=== PATIENT | male | born 2000 | race Caucasian/White ===

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

== ENCOUNTER 2021-02-04 18:26 | Emergency (ER) | payer BC ==
[~2021-02-04] VITALS: Ht 193 cm; Wt 68.0 kg
--- NOTE | 2021-02-04 18:56 | ED Abdominal Pain ---
General Chief Complaint: Abdominal/GI Problems Stated Complaint: NAUSEA/ABD PAIN Nursing Triage Note: PT ARRIVES TO ER WITH C/O N/V SINCE THURSDAY. PT SAID THE LAST TIME HE VOMITTED WAS THIS MORNING AFTER TRYING TO EAT BREAKFAST Source of Information: Patient Exam Limitations: No Limitations History of Present Illness Date Seen by Provider: Feb 04, 2021 Time Seen by Provider: 18:32 Initial Comments 20yoM with no signifcant PMH coming in due to 0200 on Thursday woke up with n/v and chills. Thursday little better. Vomited again Thursday and felt a little worse. Went to work today at 0600 and lifted something about 10 pounds, and around the same time felt pain in his RLQ abd. 5/10 achy pain. Has not taken any meds for it. Resting and laying down feels better. Pain has been constant since then. Has not wanted to eat today but did keep down a sandwich for lunch. Also had a normal bowel movement this morning which did not help. Of note, he has both had COVID less than a year ago and been vaccinated. Allergies and Home Medications Allergies Coded Allergies: No Known Allergies (Unverified Allergy, Mild, 07/18/08) Patient Home Medication List Home Medication List Reviewed: Yes No Active Prescriptions or Reported Meds Review of Systems Review of Systems Constitutional: chills EENTM: No Blurred Vision Respiratory: Denies Cough, Denies Shortness of Air Cardiovascular: Denies Chest Pain Gastrointestinal: Abdominal Pain; Denies Diarrhea; Nausea, Vomiting Genitourinary: Denies Burning Musculoskeletal: no symptoms reported Skin: no symptoms reported Psychiatric/Neurological: No Symptoms Reported Endocrine: No Symptoms Reported Hematologic/Lymphatic: No Symptoms Reported All Other Systems Reviewed Negative Unless Noted: Yes Past Vhbrkzc-Vfjwzt-Jeejwq Hx Patient Social History Tobacco Use?: No Use of E-Cig and/or Vaping dev: No Substance use?: No Alcohol Use?: No Pt feels they are or have been: No Immunizations Up To Date Tetanus Booster (TDap): Less than 5yrs PED Vaccines UTD: Yes Influenza Vaccine Up-to-Date: No; Not Current First/Initial COVID19 Vaccinat: JUNE 2020 Second COVID19 Vaccination Seth: JULY 2020 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 oz. 61.074081au; 18.00 BMI Method:Stated General Appearance: WD/WN, no apparent distress HEENT: PERRL/EOMI, normal ENT inspection, pharynx normal Neck: non-tender, full range of motion, supple, normal inspection Respiratory: chest non-tender, lungs clear, normal breath sounds, no respiratory distress, no accessory muscle use Cardiovascular: regular rate, rhythm, no edema, no murmur Gastrointestinal: normal bowel sounds, soft; No distended, No guarding, No rebound; tenderness Extremities: normal range of motion, non-tender, normal inspection, no pedal edema, no calf tenderness, normal capillary refill Back: normal inspection, no CVA tenderness, no vertebral tenderness Neurologic/Psychiatric: no motor/sensory deficits, alert, normal mood/affect Skin: normal color, warm/dry Lymphatic: no adenopathy Progress/Results/Core Measures Results/Orders Lab Results Laboratory Tests Test 02/04/21 18:53 Range/Units White Blood Count 6.6 4.3-11.0 10^3/uL Red Blood Count 5.26 4.30-5.52 10^6/uL Hemoglobin 16.7 13.3-17.7 g/dL Hematocrit 46 40-54 % Mean Corpuscular Volume 88 80-99 fL Mean Corpuscular Hemoglobin 32 25-34 pg Mean Corpuscular Hemoglobin Concent 36 32-36 g/dL Red Cell Distribution Width 11.6 10.0-14.5 % Platelet Count 352 130-400 10^3/uL Mean Platelet Volume 10.1 9.0-12.2 fL Immature Granulocyte % (Auto) 0 % Neutrophils (%) (Auto) 58 42-75 % Lymphocytes (%) (Auto) 30 12-44 % Monocytes (%) (Auto) 10 0-12 % Eosinophils (%) (Auto) 0 0-10 % Basophils (%) (Auto) 1 0-10 % Neutrophils # (Auto) 3.8 1.8-7.8 10^3/uL Lymphocytes # (Auto) 2.0 1.0-4.0 10^3/uL Monocytes # (Auto) 0.7 0.0-1.0 10^3/uL Eosinophils # (Auto) 0.0 0.0-0.3 10^3/uL Basophils # (Auto) 0.1 0.0-0.1 10^3/uL Immature Granulocyte # (Auto) 0.0 0.0-0.1 10^3/uL Sodium Level 140 135-145 MMOL/L Potassium Level 3.9 3.6-5.0 MMOL/L Chloride Level 104 98-107 MMOL/L Carbon Dioxide Level 20 L 21-32 MMOL/L Anion Gap 16 H 5-14 MMOL/L Blood Urea Nitrogen 17 7-18 MG/DL Creatinine 1.07 0.60-1.30 MG/DL Estimat Glomerular Filtration Rate 88 BUN/Creatinine Ratio 16 Glucose Level 90 70-105 MG/DL Calcium Level 10.0 8.5-10.1 MG/DL Corrected Calcium 8.5-10.1 MG/DL Total Bilirubin 1.3 H 0.1-1.0 MG/DL Aspartate Amino Transf (AST/SGOT) 16 5-34 U/L Alanine Aminotransferase (ALT/SGPT) 12 0-55 U/L Alkaline Phosphatase 48 40-136 U/L Total Protein 7.4 6.4-8.2 GM/DL Albumin 4.7 H 3.2-4.5 GM/DL Lipase 14 8-78 U/L My Orders Orders - PERFECTO HENAO MD Ondansetron Injection (Zofran Injectio (02/04/21 19:15) Lactated Ringers (Lr 1000 Ml Iv Solution (02/04/21 19:01) Ed Iv/Invasive Line Start (02/04/21 19:01) Morphine Injection (Morphine Injection (02/04/21 19:15) Cbc With Automated Diff (02/04/21 19:) Comprehensive Metabolic Panel (02/04/21 19:01) Ct Abd/Pelv W (Appendicitis) (02/04/21 19:01) Lipase (02/04/21 19:01) Iohexol Injection (Omnipaque 350 Mg/Ml 1 (02/04/21 19:15) Received Contrast (Hold Metformin- Contr (02/04/21 19:15) Ns (Ivpb) (Sodium Chloride 0.9% Ivpb Bag (02/04/21 19:15) Medications Given in ED Current Medications Medications Dose Ordered Sig/Allison Route Start Time Stop Time Status Last Admin Dose Admin Iohexol 100 ml ONCE ONCE IV 02/04/21 19:15 02/04/21 19:16 DC 02/04/21 19:22 85 ML Morphine Sulfate 4 mg ONCE ONCE IVP 02/04/21 19:15 02/04/21 19:16 DC 02/04/21 19:42 4 MG Ondansetron HCl 4 mg ONCE ONCE IVP 02/04/21 19:15 02/04/21 19:16 DC 02/04/21 19:42 4 MG Sodium Chloride 100 ml ONCE ONCE IV 02/04/21 19:15 02/04/21 19:16 DC 02/04/21 19:22 80 ML Vital Signs/I&O 02/04/21 18:37 Temp 36.6 Pulse 91 Resp 18 B/P (MAP) 137/78 (97) Pulse Ox 99 O2 Delivery Room Air 2 Blood Pressure Mean: 97 Progress Progress Note : Progress Note 20-year-old male with above history coming in due to abdominal pain with nausea vomiting. ABCs were intact and vitals were stable on presentation. Physical exam with right lower quadrant tenderness, some voluntary guarding, but otherwise soft and no rebound. An IV was placed he was given morphine for pain and Zofran for nausea. He was also given IV fluids. Basic labs including LFTs ordered as well as a CT to assess for appendicitis versus some other etiology. CT negative for any acute findings. White blood count normal, electrolytes normal, kidney function normal. He is tolerating p.o., appears well, I believe stable for discharge. This is likely some viral cause of vomiting that he is having some abdominal wall tenderness from so much straining. I did talk to them that there can be early appendicitis that were missing and what symptoms to look out for, and what to come back to the ER for. He was then discharged home in stable condition with strict return precautions. Diagnostic Imaging Diagonstic Imaging: CT Plain Films/CT/US/NM/MRI: abdomen, pelvis Comments [facility]. [place], [place] NAME: [facility]ALT [facility] REC#: [id number] PT STATUS: REG ER : 2000 PHYSICIAN: PERFECTO HENAO MD ADMIT DATE: 02/04/21/ER Signed Date of Exam:02/04/21 CT ABD/PELV W (APPENDICITIS) PROCEDURE: CT abdomen and pelvis with contrast, rule out appendicitis. TECHNIQUE: Multiple contiguous axial images were obtained through the abdomen and pelvis after the administration of intravenous contrast. All CT scans use one or more of the following dose optimizing techniques: automated exposure control, MA and/or KvP adjustment based on patient size and exam type or iterative reconstruction. INDICATION: Right lower quadrant abdominal pain. Comparison is made to the prior study from 11/06/2015. FINDINGS: The lung bases demonstrate no evidence of pneumonia or edema. There is no pleural or pericardial effusion. The liver is unremarkable. The portal veins are patent. The gallbladder is nondistended without radiodense gallstones or findings of biliary dilatation. The pancreas is unremarkable without ductal dilatation or adjacent fluid. Spleen is normal in size. There is no adrenal mass. There is a tiny left renal cyst. The kidneys are nonobstructed. There are no findings of bowel obstruction. No abnormal small or large bowel dilation evident. The appendix is not well-defined given multiple adjacent loops of bowel within the right lower quadrant. What is believed to be a portion of the appendix appears normal in caliber. There are no secondary signs of inflammation within the right lower quadrant or findings of fat stranding or free fluid within the pelvis. The urinary bladder is unremarkable. No pathologic adenopathy. Aorta is normal in caliber. There is no acute or suspicious osseous abnormality. IMPRESSION: 1. The appendix is not well delineated but there are no secondary findings of focal inflammation within the right lower quadrant. There is no fat stranding or evidence of free fluid within the pelvis. There are no findings of bowel obstruction. There is no free air or abscess. Dictated by: Dictated on workstation # [id number] Dict: 02/04/211925 Trans: 02/04/211941 [facility] [id number] Interpreted by: ANDREA FIGUEREDO MD Electronically signed by: ANDREA FIGUEREDO MD 02/04/211941 Departure Impression Primary Impression: Abdominal pain Qualified Codes: R10.31 - Right lower quadrant pain Additional Impression: Nausea and vomiting Qualified Codes: R11.2 - Nausea with vomiting, unspecified Disposition: 01 HOME, SELF-CARE Condition: Stable Departure-Patient Inst. Decision time for Depature: 20:10 Referrals: ALE BURROWS DO (PCP/Family) Primary Care Physician Patient Instructions: Nausea and Vomiting, Adult, Severe Abdominal Pain, Adult (DC) Add. Discharge Instructions: You are seen in the emergency department for abdominal pain as well as vomiting. Your labs and imaging were negative for appendicitis as of right now. It likely is some type of virus that is causing you to vomit, and you can have abdominal pain after a couple days of vomiting as well. Take ibuprofen and Tylenol for pain. Take Zofran for nausea. Try to take in clear fluids for the next couple days. If you have worsening of pain, fever, worsening of vomiting that will not stop, or any other concerns then come back to the ER. All discharge instructions reviewed with patient and/or family. Voiced understanding. Scripts Ondansetron (Ondansetron Odt) 4 Mg Tab.rapdis 4 MG PO Q6H for Vomiting for 5 Days, #20 TAB Prov: PERFECTO HENAO MD 02/04/21 Work/School Note: Work Release Form Date Seen in the Emergency Department: Feb 04, 2021 Return to Work: Feb 06, 2021 Restrictions: No Restrictions PERFECTO HENAO MD Feb 04, 2021 18:56
[2021-02-04] MEDS ORDERED: LACTATED RINGERS 1,000 ML IV STA (19:01)
[2021-02-04 19:15] LABS: BASOPHILS # (AUTO) 0.1 10^3/uL (0.0-0.1); BASOPHILS % (AUTO) 1 % (0-10); EOSINOPHILS % (AUTO) 0 % (0-10); HEMATOCRIT 46 % (40-54); HEMOGLOBIN 16.7 g/dL (13.3-17.7); LYMPHOCYTES % (AUTO) 30 % (12-44); MEAN CORPUSCULAR HEMOGLOBIN 32 pg (25-34); MEAN CORPUSCULAR HGB CONC 36 g/dL (32-36); MEAN CORPUSCULAR VOLUME 88 fL (80-99); MEAN PLATELET VOLUME 10.1 fL (9.0-12.2); MONOCYTES # (AUTO) 0.7 10^3/uL (0.0-1.0); MONOCYTES % (AUTO) 10 % (0-12); NEUTROPHILS # (AUTO) 3.8 10^3/uL (1.8-7.8); NEUTROPHILS % (AUTO) 58 % (42-75); PLATELET COUNT 352 10^3/uL (130-400); WHITE BLOOD COUNT 6.6 10^3/uL (4.3-11.0)
[2021-02-04] MEDS ORDERED: HOLD METFORMIN - RECEIVED CONTRAST 20 ML VIAL IV SCH (19:15)
[2021-02-04] MEDS ORDERED: IOHEXOL 350 MG/ML 100 ML (OMNIPAQUE 350) VIAL IV ONE (19:15)
[2021-02-04] MEDS ORDERED: NS 100 ML (IVPB) BAG IV ONE (19:15)
[2021-02-04] MEDS ORDERED: morphine INJ 10 MG/ML 1ML (SYR OR VIAL) IVP ONE (19:15)
[2021-02-04] MEDS ORDERED: ONDANSETRON 4 MG/2 ML (SDV) Z0FRAN IVP ONE (19:15)
[2021-02-04 19:23] LABS: ALANINE AMINOTRANSFERASE 12 U/L (0-55); ALBUMIN 4.7 GM/DL (3.2-4.5); ALKALINE PHOSPHATASE 48 U/L (40-136); BILIRUBIN,TOTAL 1.3 MG/DL (0.1-1.0); BUN/CREATININE RATIO 16; CARBON DIOXIDE 20 MMOL/L (21-32); CHLORIDE 104 MMOL/L (98-107); CREATININE SERUM 1.07 MG/DL (0.60-1.30); GFR ESTIMATED 88; GLUCOSE 90 MG/DL (70-105); POTASSIUM 3.9 MMOL/L (3.6-5.0); SODIUM 140 MMOL/L (135-145); TOTAL PROTEIN 7.4 GM/DL (6.4-8.2)
--- NOTE | 2021-02-04 19:43 | Diagnostic Imaging Report ---
PROCEDURE: CT abdomen and pelvis with contrast, rule out appendicitis. TECHNIQUE: Multiple contiguous axial images were obtained through the abdomen and pelvis after the administration of intravenous contrast. All CT scans use one or more of the following dose optimizing techniques: automated exposure control, MA and/or KvP adjustment based on patient size and exam type or iterative reconstruction. INDICATION: Right lower quadrant abdominal pain. Comparison is made to the prior study from 11/06/2015. FINDINGS: The lung bases demonstrate no evidence of pneumonia or edema. There is no pleural or pericardial effusion. The liver is unremarkable. The portal veins are patent. The gallbladder is nondistended without radiodense gallstones or findings of biliary dilatation. The pancreas is unremarkable without ductal dilatation or adjacent fluid. Spleen is normal in size. There is no adrenal mass. There is a tiny left renal cyst. The kidneys are nonobstructed. There are no findings of bowel obstruction. No abnormal small or large bowel dilation evident. The appendix is not well-defined given multiple adjacent loops of bowel within the right lower quadrant. What is believed to be a portion of the appendix appears normal in caliber. There are no secondary signs of inflammation within the right lower quadrant or findings of fat stranding or free fluid within the pelvis. The urinary bladder is unremarkable. No pathologic adenopathy. Aorta is normal in caliber. There is no acute or suspicious osseous abnormality. IMPRESSION: 1. The appendix is not well delineated but there are no secondary findings of focal inflammation within the right lower quadrant. There is no fat stranding or evidence of free fluid within the pelvis. There are no findings of bowel obstruction. There is no free air or abscess. Dictated by: Dictated on workstation # [id number]
[2021-02-04] MEDS ORDERED: ONDA4TAB11 PO (20:00)
[2021-02-04] MEDS ORDERED: RX-ONDANSETRON 4 MG ODT (ZOFRAN) PPK #4 PO STA (20:01)
[2021-02-04 20:29] VITALS: BP 127/78
== END 2021-02-04 20:28 | disposition home or self-care (01) ==
LOC: EDUNIT# 18:26 → ER 18:28
DX: R10.31 Right lower quadrant pain (principal); R11.2 Nausea with vomiting, unspecified
CPT/HCPCS: 36415; 74177; 80053; 83690; 85025

== ENCOUNTER 2021-02-08 14:14 | Observation (INO) | payer BC ==
[~2021-02-08] VITALS: Ht 193 cm; Wt 62.3 kg
[~2021-02-08 14:14] MED LIST changes: +ONDA4TAB11 PO
[2021-02-08] MEDS ORDERED: DOCUSATE SODIUM 100 MG (COLACE) CAP PO PRN (14:45)
[2021-02-08] MEDS ORDERED: ONDANSETRON 4 MG (ZOFRAN) ORAL DISSOLVE TAB PO PRN (14:45)
[2021-02-08] MEDS ORDERED: ACETAMINOPHEN 500 MG TAB (TYLENOL) PO PRN (14:45)
[2021-02-08] MEDS ORDERED: CALCIUM CARBONATE 500 MG (TUMS) TAB.CHEW PO PRN (14:45)
[2021-02-08] MEDS ORDERED: ALPRAZolam 0.25 MG (XANAX) TAB PO PRN (14:45)
[2021-02-08] MEDS ORDERED: HYDROcodone/APAP 5 MG/325 MG (LORTAB) TAB PO PRN (14:45)
[2021-02-08] MEDS ORDERED: MELATONIN 3 MG TABLET PO PRN (14:45)
[2021-02-08] MEDS ORDERED: ONDANSETRON 4 MG/2 ML (SDV) Z0FRAN IVP PRN (14:45)
[2021-02-08] MEDS ORDERED: diphenhydrAMINE 25 MG TAB (BENADRYL) PO PRN (14:45)
[2021-02-08] MEDS ORDERED: morphine INJ 10 MG/ML 1ML (SYR OR VIAL) IVP PRN (14:45)
[2021-02-08] MEDS ORDERED: ACETAMINOPHEN 325 MG TABLET PO PRN (15:00)
--- NOTE | 2021-02-08 15:11 | Diagnostic Imaging Report ---
INDICATION: Left-sided abdominal pain. TECHNIQUE: Two view chest 3:03 PM CORRELATION STUDY: 05/05/2015 FINDINGS: The heart size, mediastinal configuration and pulmonary vasculature are within normal limits. The lungs are clear with no consolidating infiltrate. There is no significant pleural effusion or pneumothorax. Visualized osseous structures are unremarkable. IMPRESSION: 1. Negative for acute abnormality of the chest. Dictated by: Dictated on workstation # [id number]
[2021-02-08 15:23] LABS: BASOPHILS % (AUTO) 1 % (0-10); EOSINOPHILS # (AUTO) 0.1 10^3/uL (0.0-0.3); EOSINOPHILS % (AUTO) 1 % (0-10); HEMATOCRIT 43 % (40-54); HEMOGLOBIN 15.4 g/dL (13.3-17.7); LYMPHOCYTES % (AUTO) 35 % (12-44); MEAN CORPUSCULAR HEMOGLOBIN 32 pg (25-34); MEAN CORPUSCULAR HGB CONC 36 g/dL (32-36); MEAN CORPUSCULAR VOLUME 89 fL (80-99); MEAN PLATELET VOLUME 9.6 fL (9.0-12.2); MONOCYTES # (AUTO) 0.5 X 10^3 (0.0-1.0); MONOCYTES % (AUTO) 8 % (0-12); NEUTROPHILS # (AUTO) 3.1 X 10^3 (1.8-7.8); NEUTROPHILS % (AUTO) 55 % (42-75); PLATELET COUNT 298 10^3/uL (130-400); WHITE BLOOD COUNT 5.7 10^3/uL (4.3-11.0)
[2021-02-08] MEDS: NS IV 1000 ML 1,000 ML IV SCH ×2 (15:44→21:28)
[2021-02-08 15:46] LABS: ALBUMIN 4.4 GM/DL (3.2-4.5); ERYTHROCYTE SEDIMENTATION RATE 1 MM/HR (0-15); POTASSIUM 3.9 MMOL/L (3.6-5.0)
[2021-02-08 15:48] LABS: CALCIUM 8.8 MG/DL (8.5-10.1)
[2021-02-08 15:49] LABS: TOTAL PROTEIN 6.5 GM/DL (6.4-8.2)
[2021-02-08 15:51] LABS: BILIRUBIN,TOTAL 1.1 MG/DL (0.1-1.0)
[2021-02-08 15:53] LABS: CREATININE SERUM 1.06 MG/DL (0.60-1.30)
[2021-02-08] MEDS ORDERED: DIPH50LI PO (15:54)
[2021-02-08] MEDS ORDERED: ONDA4TAB11 PO (15:54)
[2021-02-08] MEDS ORDERED: TRAM50TA3 PO (15:54)
[2021-02-08 15:57] LABS: BILIRUBIN,URINE NEGATIVE (NEGATIVE); CLARITY,URINE CLEAR; COLOR,URINE YELLOW; GLUCOSE, URINE (UA) NEGATIVE (NEGATIVE); KETONES,URINE NEGATIVE (NEGATIVE); LEUKOCYTE ESTERASE ,URINE NEGATIVE (NEGATIVE); NITRITE,URINE NEGATIVE (NEGATIVE); PROTEIN,URINE NEGATIVE (NEGATIVE)
--- NOTE | 2021-02-08 16:07 | Diagnostic Imaging Report ---
INDICATION: Left-sided abdominal pain. TECHNIQUE: Two supine and single upright view of the abdomen 03:05 p.m. CORRELATION STUDY: None. FINDINGS: Lung bases appearing clear. No free air on upright imaging. Prominent gas within the colon and small bowel. Slight disproportionate gas in the transverse colon. No differentiating air-fluid levels or findings to suggest high-degree bowel obstruction. Mild wall thickening of small bowel and left midabdomen not excluded, could be reflective of underlying enteritis. Mild spina bifida occulta defect at the S1 level. IMPRESSION: 1. Nonobstructive-appearing bowel gas pattern. Gas-filled loops of bowel may be reflective of mild ileus. Additionally, there is question area of small bowel wall thickening; could be reflective of component of underlying enteritis. Dictated by: Dictated on workstation # [id number]
[2021-02-08 16:26] VITALS: BP 107/65
[2021-02-08 16:36] LABS: AMORPHOUS SEDIMENT,UR FEW AMOR URATES /LPF; BACTERIA,URINE TRACE /HPF
--- NOTE | 2021-02-08 17:38 | Consultation - Surgery ---
History of Present Illness History of Present Illness Patient Consulted On(flakita/time) 02/08/21 17:24 Time Seen by Provider: 16:41 History of Present Illness Surgery asked to consult regarding abdominal pain. HPI: Pt is a 20 yo male with abdominal pain that began last Thursday; however, it started with nausea and vomiting that woke him from sleep at 1am. He did go out to eat night, but does not remember exactly what he ate. He doesn't think any of his friends that ate out with him got sick. Pain did not get better and he went to the ER on Thursday; CT and work-up all negative. He then got sent to [place] later in the week for IV fluids and basically is still not better. Relates that he had to lean on shopping cart in the store because of the pain and bumps on the road caused abdominal pain. He had one episode of watery diarrhea on Thursday or Thursday. He rates the pain as 4 out of 10, mostly in LUQ but also in RLQ. He denies any heartburn or "acid" feeling in throat. He has never had pain like this before and denied fever at home. Allergies and Home Medications Allergies Coded Allergies: KILLIANANo Known Allergies (Verified Allergy, Mild, 02/08/21) Patient Home Medication List Home Medication List Reviewed: Yes Diphenhydramine HCl (Zzzquil) 50 Mg/30 Ml Liquid, 30 ML PO HS PRN for SLEEP, (Reported) Entered as Reported by: PAOLA SANCHEZ on 02/08/21 0800 Last Action: Reviewed Ondansetron (Ondansetron Odt) 4 Mg Tab.rapdis, 4 MG PO Q6H PRN for NAUSEA/VOMITING-1ST LINE, (Reported) Entered as Reported by: PAOLA SANCHEZ on 02/08/21 250 Last Action: Reviewed Tramadol HCl (Tramadol HCl) 50 Mg Tablet, 50 MG PO BID PRN for PAIN-MODERATE (5- 7), (Reported) Entered as Reported by: PAOLA SANCHEZ on 02/08/21 023 Last Action: Reviewed Discontinued Medications Ondansetron (Ondansetron Odt) 4 Mg Tab.rapdis, 4 MG PO Q6H Discontinued Reason: No Longer Taking Prescribed by: PERFECTO HENAO on 02/04/211999 Last Action: Discontinued Past Xhmlvrc-Lixvlp-Hicjzo Hx Patient Social History Smoking Status: Never a Smoker Recent Hopitalizations: No Alcohol Use?: No Have you traveled recently?: No Immunizations Up To Date Tetanus Booster (TDap): Less than 5yrs PED Vaccines UTD: Yes Seasonal Allergies Seasonal Allergies: No Surgeries History of Surgeries: Yes (wisdom teeth removal) Respiratory History of Respiratory Disorde: No Cardiovascular History of Cardiac Disorders: No Neurological History of Neurological Disord: No Reproductive System Hx Reproductive Disorders: No Genitourinary History of Genitourinary Disor: No Gastrointestinal History of Gastrointestinal Di: No Musculoskeletal History of Musculoskeletal Dis: No Endocrine History of Endocrine Disorders: No HEENT History of HEENT Disorders: No Loss of Vision: Denies Hearing Impairment: Denies Cancer History of Cancer: No Psychosocial History of Psychiatric Problem: No Integumentary History of Skin or Integumenta: No Family Medical History Significant Family History: Hypertension (mother and father) Review of Systems-General Constitutional: No dizziness; weakness, weight loss (due to not eating) EENTM: No blurred vision, No double vision, No mouth swelling, No epistaxis Respiratory: No cough, No dyspnea on exertion Cardiovascular: No chest pain, No edema, No palpitations Gastrointestinal: abdominal pain, diarrhea; No hematemesis, No jaundice, No melena; nausea, vomiting Genitourinary: No dysuria, No frequency, No hematuria Musculoskeletal: No joint pain, No joint swelling, No muscle pain, No muscle stiffness Skin: No change in color, No change in hair/nails Psychiatric/Neurological: Denies Anxiety, Denies Depressed, Denies Seizure, Denies Tremors Physical Exam-General Problems Physical Exam Vital Signs Vital Signs - First Documented 02/08/21 02/08/21 15:51 16:26 Temp 36.3 Pulse 54 Resp 17 B/P (MAP) 107/65 (79) Pulse Ox 99 O2 Delivery Room Air Capillary Refill : General Appearance: WD/WN, no apparent distress, thin Eyes: Bilateral Eye PERRL, Bilateral Eye EOMI HEENT: pharynx normal; No scleral icterus (R), No scleral icterus (L) Neck: non-tender, supple Respiratory: lungs clear, normal breath sounds, no respiratory distress, no accessory muscle use Cardiovascular: regular rate, rhythm, no murmur Gastrointestinal: soft, no organomegaly; No distended; guarding (voluntary); No rebound; tenderness (LUQ and RLQ) Rectal: deferred Back: no CVA tenderness, no vertebral tenderness Extremities: no pedal edema, no calf tenderness Neurologic/Psychiatric: regulatory affairs intern II-XII nml as tested, no motor/sensory deficits, alert, oriented x 3 Data Review Labs Laboratory Tests 02/08/21 15:14: White Blood Count 5.7, Red Blood Count 4.83, Hemoglobin 15.4, Hematocrit 43, Mean Corpuscular Volume 89, Mean Corpuscular Hemoglobin 32, Mean Corpuscular Hemoglobin Concent 36, Red Cell Distribution Width 11.9, Platelet Count 298, Mean Platelet Volume 9.6, Immature Granulocyte % (Auto) 0, Neutrophils (%) (Auto) 55, Lymphocytes (%) (Auto) 35, Monocytes (%) (Auto) 8, Eosinophils (%) (Auto) 1, Basophils (%) (Auto) 1, Neutrophils # (Auto) 3.1, Lymphocytes # (Auto) 2.0, Monocytes # (Auto) 0.5, Eosinophils # (Auto) 0.1, Basophils # (Auto) 0.0, Immature Granulocyte # (Auto) 0.0, Erythrocyte Sedimentation Rate 1, Sodium Level 138, Potassium Level 3.9, Chloride Level 104, Carbon Dioxide Level 23, Anion Gap 11, Blood Urea Nitrogen 14, Creatinine 1.06, Estimat Glomerular Filtration Rate 89, BUN/Creatinine Ratio 13, Glucose Level 83, Lactic Acid Level 1.07, Calcium Level 8.8, Corrected Calcium 8.5, Total Bilirubin 1.1H, Aspartate Amino Transf (AST/SGOT) 11, Alanine Aminotransferase (ALT/SGPT) 9, Alkaline Phosphatase 42, C-Reactive Protein High Sensitivity 0.01, Total Protein 6.5, Albumin 4.4, Amylase Level 60, Lipase 15, Procalcitonin 0.01 02/08/21 15:45: Urine Color YELLOW, Urine Clarity CLEAR, Urine pH 6.0, Urine Specific [place] 1.025H, Urine Protein NEGATIVE, Urine Glucose (UA) NEGATIVE, Urine Ketones NEGATIVE, Urine Nitrite NEGATIVE, Urine Bilirubin NEGATIVE, Urine Urobilinogen 0.2, Urine Leukocyte Esterase NEGATIVE, Urine RBC (Auto) NEGATIVE, Urine RBC NONE, Urine WBC NONE, Urine Crystals PRESENTH, Urine Amorphous Sediment FEW VERA URATESH, Urine Bacteria TRACE, Urine Casts NONE, Urine Mucus LARGEH, Urine Culture Indicated NO Radiology Date of Exam:02/04/21 CT ABD/PELV W (APPENDICITIS) PROCEDURE: CT abdomen and pelvis with contrast, rule out appendicitis. TECHNIQUE: Multiple contiguous axial images were obtained through the abdomen and pelvis after the administration of intravenous contrast. All CT scans use one or more of the following dose optimizing techniques: automated exposure control, MA and/or KvP adjustment based on patient size and exam type or iterative reconstruction. INDICATION: Right lower quadrant abdominal pain. Comparison is made to the prior study from 11/06/2015. FINDINGS: The lung bases demonstrate no evidence of pneumonia or edema. There is no pleural or pericardial effusion. The liver is unremarkable. The portal veins are patent. The gallbladder is nondistended without radiodense gallstones or findings of biliary dilatation. The pancreas is unremarkable without ductal dilatation or adjacent fluid. Spleen is normal in size. There is no adrenal mass. There is a tiny left renal cyst. The kidneys are nonobstructed. There are no findings of bowel obstruction. No abnormal small or large bowel dilation evident. The appendix is not well-defined given multiple adjacent loops of bowel within the right lower quadrant. What is believed to be a portion of the appendix appears normal in caliber. There are no secondary signs of inflammation within the right lower quadrant or findings of fat stranding or free fluid within the pelvis. The urinary bladder is unremarkable. No pathologic adenopathy. Aorta is normal in caliber. There is no acute or suspicious osseous abnormality. IMPRESSION: 1. The appendix is not well delineated but there are no secondary findings of focal inflammation within the right lower quadrant. There is no fat stranding or evidence of free fluid within the pelvis. There are no findings of bowel obstruction. There is no free air or abscess. Dictated by: Dictated on workstation # [id number] Dict: 02/04/211925 Trans: 02/04/211941 [facility] [id number] Interpreted by: ANDREA FIGUEREDO MD Electronically signed by: ANDREA FIGUEREDO MD 02/04/211941 Date of Exam:02/08/21 ABDOMEN, FLAT & UPRIGHT/DECUB INDICATION: Left-sided abdominal pain. TECHNIQUE: Two supine and single upright view of the abdomen 03:05 p.m. CORRELATION STUDY: None. FINDINGS: Lung bases appearing clear. No free air on upright imaging. Prominent gas within the colon and small bowel. Slight disproportionate gas in the transverse colon. No differentiating air-fluid levels or findings to suggest high-degree bowel obstruction. Mild wall thickening of small bowel and left midabdomen not excluded, could be reflective of underlying enteritis. Mild spina bifida occulta defect at the S1 level. IMPRESSION: 1. Nonobstructive-appearing bowel gas pattern. Gas-filled loops of bowel may be reflective of mild ileus. Additionally, there is question area of small bowel wall thickening; could be reflective of component of underlying enteritis. Dictated by: Dictated on workstation # [id number] Dict: 02/08/21 1511 Trans: 02/08/21 1638 [id number] Interpreted by: KARLA ANGELES DO Electronically signed by: KARLA ANGELES DO 02/08/21 1638 Assessment/Plan Assessment/Plan Assessment/Plan Abdominal pain LUQ and RLQ Nausea and vomiting Pt has normal WBC (5.7) and no real findings on CT or Abd X-ray, physical exam is not impressive. He most likely has a viral enteritis; if he had appendicitis or any other inflammatory process then his WBC would not be normal after a week. His mother asked about ulcer; while not likely because his symptoms and complaints don't seem like an ulcer, it would be worth while to consider EGD to at least rule a few things out. For now would plan IV fluids, pain meds and anti-emetics as needed; don't believe he needs ABX at this time. Will reassess him in am and discuss possible EGD and therefore will keep him NPO for now. Nothing else indicating need for surgery at this point. NICHOLE SOTO DO Feb 08, 2021 17:38
[2021-02-08 17:52] LABS: AMPHETAMINE SCREEN, URINE NEGATIVE (NEGATIVE); BARBITURATE SCREEN URINE NEGATIVE (NEGATIVE); BENZODIAZEPINES SCREEN URINE NEGATIVE (NEGATIVE); CANNABINOID SCREEN, URINE NEGATIVE (NEGATIVE); COCAINE SCREEN URINE NEGATIVE (NEGATIVE); METHADONE STAT NEGATIVE (NEGATIVE); METHAMPHETAMINE SCREEN URINE S NEGATIVE (NEGATIVE); OPIATE SCREEN URINE NEGATIVE (NEGATIVE); OXYCODONE STAT NEGATIVE (NEGATIVE); PROPOXYPHENE STAT NEGATIVE (NEGATIVE); TRICYCLIC ANTIDEPRESSANTS SCRE NEGATIVE (NEGATIVE)
[2021-02-08] MEDS ORDERED: PANTOPRAZOLE 40 MG (PROTONIX) VIAL IV NR (18:30)
[2021-02-08] MEDS ORDERED: FLU QUADRIvalent (3YOA+) 60 mcg/0.5 ml 2021-22(AFLURIA) IM ONE (18:30)
[2021-02-08] MEDS: KETOROLAC 15 MG/ML VIAL IVP SCH ×2 (19:17→23:45)
[2021-02-08 19:37] VITALS: BP 104/66
[2021-02-09] VITALS: BP 110/70
[2021-02-09 04:53] VITALS: BP 102/64
[2021-02-09] MEDS: KETOROLAC 15 MG/ML VIAL IVP SCH ×2 (05:51→12:30)
[2021-02-09] MEDS: NS IV 1000 ML 1,000 ML IV SCH (05:51)
[2021-02-09 05:52] LABS: BASOPHILS # (AUTO) 0.1 10^3/uL (0.0-0.1); BASOPHILS % (AUTO) 1 % (0-10); EOSINOPHILS # (AUTO) 0.1 10^3/uL (0.0-0.3); EOSINOPHILS % (AUTO) 1 % (0-10); HEMATOCRIT 40 % (40-54); LYMPHOCYTES % (AUTO) 41 % (12-44); MEAN CORPUSCULAR HEMOGLOBIN 32 pg (25-34); MEAN CORPUSCULAR HGB CONC 35 g/dL (32-36); MEAN CORPUSCULAR VOLUME 89 fL (80-99); MEAN PLATELET VOLUME 10.1 fL (9.0-12.2); MONOCYTES # (AUTO) 0.5 10^3/uL (0.0-1.0); MONOCYTES % (AUTO) 10 % (0-12); NEUTROPHILS # (AUTO) 2.3 10^3/uL (1.8-7.8); NEUTROPHILS % (AUTO) 47 % (42-75); PLATELET COUNT 270 10^3/uL (130-400); WHITE BLOOD COUNT 4.8 10^3/uL (4.3-11.0)
[2021-02-09 06:00] LABS: ALBUMIN 3.7 GM/DL (3.2-4.5); POTASSIUM 4.5 MMOL/L (3.6-5.0)
[2021-02-09 06:01] LABS: CALCIUM 8.6 MG/DL (8.5-10.1)
[2021-02-09 06:03] LABS: TOTAL PROTEIN 5.5 GM/DL (6.4-8.2)
[2021-02-09 06:04] LABS: BILIRUBIN,TOTAL 1.7 MG/DL (0.1-1.0)
[2021-02-09 06:06] LABS: CREATININE SERUM 1.09 MG/DL (0.60-1.30)
[2021-02-09 07:45] VITALS: BP 130/62
[2021-02-09] MEDS ORDERED: PANTOPRAZOLE 40 MG (PROTONIX) VIAL IV SCH (09:00)
--- NOTE | 2021-02-09 09:12 | Progress Note - Surgery ---
TARIQVIET 02/09/21 0912: Subjective Date Seen by a Provider: Feb 09, 2021 Time Seen by a Provider: 08:00 Subjective/Events-last exam HPI per Surgery Consult: Pt is a 20 yo male with abdominal pain that began last Thursday; however, it started with nausea and vomiting that woke him from sleep at 1am. He did go out to eat night, but does not remember exactly what he ate. He doesn't think any of his friends that ate out with him got sick. Pain did not get better and he went to the ER on Thursday; CT and work-up all negative. He then got sent to [place] later in the week for IV fluids and basically is still not better. Relates that he had to lean on shopping cart in the store because of the pain and bumps on the road caused abdominal pain. He had one episode of watery diarrhea on Thursday or Thursday. He rates the pain as 4 out of 10, mostly in LUQ but also in RLQ. He denies any heartburn or "acid" feeling in throat. He has never had pain like this before and denied fever at home. Patient currently has no pain. Will have episodes of pain. 3 to 4 episodes per day since starting last Thursday. Reports having nausea this morning. No vomiting or diarrhea. Had bowel movement yesterday reports no change from normal bowel movements. Has not passed gas. Pt has been NPO since last night. Review of Systems General: No Chills, No Night Sweats HEENT: No Head Aches, No Visual Changes, No Eye Pain Pulmonary: No Dyspnea, No Cough Cardiovascular: No: Chest Pain, Palpitations Gastrointestinal: Nausea (Pt did feel nauseated this morning.), Abdominal Pain (Pt reports abdominal pain in RLQ and LUQ. has about 3 to 4 episodes of pain per day since starting Thursday.); No: Vomiting Genitourinary: No Dysuria, No Frequency Neurological: No: Weakness, Numbness Focused Exam Lactate Level 02/08/21 15:14: Lactic Acid Level 1.07 Objective Exam Vital Signs Date Time Temp Pulse Resp B/P (MAP) Pulse Ox O2 Delivery O2 Flow Rate FiO2 02/09/21 07:45 36.8 63 20 130/62 (84) 100 Room Air 02/09/21 04:53 36.2 55 16 102/64 (77) 99 Room Air 02/09/21 00:00 36.4 58 18 110/70 (83) 98 Room Air 02/08/21 19:37 35.8 47 17 104/66 (79) 99 Room Air 02/08/21 16:26 36.3 54 17 107/65 (79) 99 Room Air 02/08/21 15:51 Room Air I & O 02/09/21 07:00 Intake Total 400 ml Balance 400 ml Capillary Refill : General Appearance: No Apparent Distress HEENT: PERRL/EOMI Neck: Full Range of Motion, Normal Inspection, Non Tender, Supple Cardiovascular: Regular Rate, Rhythm Peripheral Pulses: 2+ Dorsalis Pedis (R), 2+ Left Dors-Pedis (L), 2+ Radial Pulses (R), 2+ Radial Pulses (L) Gastrointestinal: soft, no organomegaly; No distended; guarding (voluntary. Pt stiffened abdomen during palpation with hands. No stiffening of abdomen during pressure with stethescope.); No rebound; tenderness (LUQ and RLQ. Some tenderness with pressure applied during auscultation with stethescope.) Neurologic/Psychiatric: Alert, Oriented x3, Normal Mood/Affect Skin: Normal Color, Warm/Dry Lymphatic: No Adenopathy (Cervical) Results Lab Laboratory Tests 02/08/21 15:14: White Blood Count 5.7, Red Blood Count 4.83, Hemoglobin 15.4, Hematocrit 43, Mean Corpuscular Volume 89, Mean Corpuscular Hemoglobin 32, Mean Corpuscular Hemoglobin Concent 36, Red Cell Distribution Width 11.9, Platelet Count 298, Mean Platelet Volume 9.6, Immature Granulocyte % (Auto) 0, Neutrophils (%) (Auto) 55, Lymphocytes (%) (Auto) 35, Monocytes (%) (Auto) 8, Eosinophils (%) (Auto) 1, Basophils (%) (Auto) 1, Neutrophils # (Auto) 3.1, Lymphocytes # (Auto) 2.0, Monocytes # (Auto) 0.5, Eosinophils # (Auto) 0.1, Basophils # (Auto) 0.0, Immature Granulocyte # (Auto) 0.0, Erythrocyte Sedimentation Rate 1, Sodium Level 138, Potassium Level 3.9, Chloride Level 104, Carbon Dioxide Level 23, Anion Gap 11, Blood Urea Nitrogen 14, Creatinine 1.06, Estimat Glomerular Filt ration Rate 89, BUN/Creatinine Ratio 13, Glucose Level 83, Lactic Acid Level 1.07, Calcium Level 8.8, Corrected Calcium 8.5, Total Bilirubin 1.1H, Aspartate Amino Transf (AST/SGOT) 11, Alanine Aminotransferase (ALT/SGPT) 9, Alkaline Ph osphatase 42, C-Reactive Protein High Sensitivity 0.01, Total Protein 6.5, Albumin 4.4, Amylase Level 60, Lipase 15, Procalcitonin 0.01 02/08/21 15:45: Urine Color YELLOW, Urine Clarity CLEAR, Urine pH 6.0, Urine Specific [place] 1.025H, Urine Protein NEGATIVE, Urine Glucose (UA) NEGATIVE, Urine Ketones NEGATIVE, Urine Nitrite NEGATIVE, Urine Bilirubin NEGATIVE, Urine Urobilinogen 0.2, Urine Leukocyte Esterase NEGATIVE, Urine RBC (Auto) NEGATIVE, Urine RBC NONE, Urine WBC NONE, Urine Crystals PRESENTH, Urine Amorphous Sediment FEW VERA URATESH, Urine Bacteria TRACE, Urine Casts NONE, Urine Mucus LARGEH, Urine Culture Indicated NO, Urine Opiates Screen NEGATIVE, Urine Oxycodone Screen NEGATIVE, Urine Methadone Screen NEGATIVE, Urine Propoxyphene Screen NEGATIVE, Urine Barbiturates Screen NEGATIVE, Ur Tricyclic Antidepressants Screen NEGATIVE, Urine Phencyclidine Screen NEGATIVE, Urine Amphetamines Screen N EGATIVE, Urine Methamphetamines Screen NEGATIVE, Urine Benzodiazepines Screen NEGATIVE, Urine Cocaine Screen NEGATIVE, Urine Cannabinoids Screen NEGATIVE 02/09/21 05:38: White Blood Count 4.8, Red Blood Count 4.43, Hemoglobin 14.0, Hematocrit 40, Mean Corpuscular Volume 89, Mean Corpuscular Hemoglobin 32, Mean Corpuscular Hemoglobin Concent 35, Red Cell Distribution Width 11.7, Platelet Count 270, Mean Platelet Volume 10.1, Immature Granulocyte % (Auto) 0, Neutrophils (%) (Auto) 47, Lymphocytes (%) (Auto) 41, Monocytes (%) (Auto) 10, Eosinophils (%) (Auto) 1, Basophils (%) (Auto) 1, Neutrophils # (Auto) 2.3, Lymphocytes # (Auto) 2.0, Monocytes # (Auto) 0.5, Eosinophils # (Auto) 0.1, Basophils # (Auto) 0.1, Immature Granulocyte # (Auto) 0.0, Sodium Level 138, Potassium Level 4.5, Chloride Level 108H, Carbon Dioxide Level 23, Anion Gap 7, Blood Urea Nitrogen 14, Creatinine 1.09, Estimat Glomerular Filtration Rate 86, BUN/Creatinine Ratio 13, Glucose Level 78, Calcium Level 8.6, Corrected Calcium 8.8, Total Bilirubin 1.7H, Aspartate Amino Transf (AST/SGOT) 11, Alanine Aminotransferase (ALT/SGPT) 6, Alkaline Phosphatase 34L, Total Protein 5.5L, Albumin 3.7 Assessment/Plan Assessment/Plan Assessment/Plan Abdominal pain LUQ and RLQ Nausea and vomiting Pt has normal WBC (5.7) and no real findings on CT or Abd X-ray, physical exam is not impressive. He most likely has a viral enteritis; if he had appendicitis or any other inflammatory process then his WBC would not be normal after a week. His mother asked about ulcer; while not likely because his symptoms and complaints don't seem like an ulcer, it would be worth while to consider EGD to at least rule a few things out. For now would plan IV fluids, pain meds and anti-emetics as needed; don't believe he needs ABX at this time. Will reassess him in am and discuss possible EGD and therefore will keep him NPO for now. Nothing else indicating need for surgery at this point. NICHOLE VASQUEZ DO 02/09/21 1148: Subjective Time Seen by a Provider: 10:06 Subjective/Events-last exam Pt seen and examined, had some nausea and still has abdominal pain. Pt does not want to do EGD. Review of Systems General: No Chills, No Night Sweats HEENT: No Head Aches, No Visual Changes Pulmonary: No Dyspnea, No Cough Cardiovascular: No: Chest Pain, Palpitations Gastrointestinal: Nausea (Pt did feel nauseated this morning.), Abdominal Pain (Pt reports abdominal pain in RLQ and LUQ. has about 3 to 4 episodes of pain per day since starting Thursday.); No: Vomiting Objective Exam General Appearance: No Apparent Distress, Thin HEENT: PERRL/EOMI Respiratory: Lungs Clear, Normal Breath Sounds, No Accessory Muscle Use, No Respiratory Distress Cardiovascular: Regular Rate, Rhythm, No Murmur Gastrointestinal: soft, no organomegaly; No distended; guarding (voluntary. Pt stiffened abdomen during palpation with hands. No stiffening of abdomen during pressure with stethescope.); No rebound; tenderness (LUQ and RLQ. Some tend erness with pressure applied during auscultation with stethescope.) Assessment/Plan Assessment/Plan Assessment/Plan Abdominal pain LUQ and RLQ Nausea and vomiting Pt has normal WBC (4.8 down from 5.7) and no real findings on CT or Abd X-ray, physical exam is not impressive. He most likely has a viral enteritis; if he had appendicitis or any other inflammatory process then his WBC would not be normal after a week. Ok to go home, since pt is refusing EGD. Supervisory-Addendum Brief Verification & Attestation Participated in pt care: history, MDM, physical Personally performed: exam, history, MDM, supervision of care Care discussed with: Medical Student Procedures: n/a Verification and Attestation of Medical Student E/M Service A medical student performed and documented this service. I then reviewed and verified all information documented by the medical student and made modifications to such information, when appropriate. I personally performed a physical exam, medical decision making and then discussed any differences between the notes and made revisions as necessary to create one note. Nichole Vasquez , 02/09/21 , 11:50 VIET POTTER Feb 09, 2021 09:12 NICHOLE VASQUEZ DO Feb 09, 2021 11:48
[2021-02-09] MEDS ORDERED: DICL50TA6 PO (11:32)
[2021-02-09] MEDS ORDERED: PANT40TA2 PO (11:32)
--- NOTE | 2021-02-09 11:33 | History & Physical ---
History of Present Illness HPI/Chief Complaint Chief complaint: Abdominal pain History of present illness: This is a 20-year-old white male clinic patient of mine who I just seen on Thursday then again on Thursday who continued to have abdominal pain and findings consistent with peritonitis or obstruction. He was directly admitted. Dr. Vasquez was consulted. Labs reviewed. Acute abdominal x-ray showed findings consistent with enteritis. No indication for antibiotics. He is currently hungry and wants to eat. IV fluids maintained. EGD was offered but declined. Overall he feels a little bit better but time will help heal and he will call me on Thursday with update. He is about to change jobs and gets a drug screen on Thursday. Source: patient Exam Limitations: no limitations Date Seen 02/09/21 Time Seen by a Provider: 11:00 Attending Physician Nancy Ferrari DO PCP Nancy Ferrari DO Referring Physician Date of Admission Feb 08, 2021 at 14:45 Home Medications & Allergies Home Medications Reviewed patient Home Medication Reconciliation performed by pharmacy medication reconciliations hvac installation technician and/or nursing. Patients Allergies have been reviewed. Allergies Allergies Coded Allergies NKANo Known Allergies (Verified Allergy, Mild, 02/08/21) Past Kzdqlre-Vkwkdp-Dzljiu Hx Past Med/Social Hx: Reviewed Nursing Past Med/Soc Hx, Reviewed and Corrections made Patient Social History Marrital Status: single Employed/Student: employed Alcohol Use: Denies Use Smoking Status: Never a Smoker Recent Foreign Travel: No Contact w/other who traveled: No Recent Hopitalizations: No Immunizations Up To Date Tetanus Booster (TDap): Less than 5yrs Pediatric: Yes Seasonal Allergies Seasonal Allergies: No Past Medical History Reproductive: No Loss of Vision: Denies Hearing Impairment: Denies Family History Hypertension (mother and father) Review of Systems Constitutional: see HPI, weakness EENTM: no symptoms reported Respiratory: no symptoms reported Cardiovascular: no symptoms reported Gastrointestinal: abdominal pain, loss of appetite, nausea, vomiting Genitourinary: no symptoms reported Musculoskeletal: no symptoms reported Skin: no symptoms reported Psychiatric/Neurological: No Symptoms Reported All Other Systems Reviewed Negative Unless Noted: Yes Physical Exam Physical Exam Vital Signs Vital Signs - First Documented 02/08/21 02/08/21 15:51 16:26 Temp 36.3 Pulse 54 Resp 17 B/P (MAP) 107/65 (79) Pulse Ox 99 O2 Delivery Room Air Capillary Refill : Height, Weight, BMI Height: 6'1" Weight: 135lbs. oz. [id number]; 16.72 BMI Method:Stated General Appearance: No Apparent Distress, Thin Eyes: Bilateral Eye PERRL, Bilateral Eye EOMI HEENT: PERRL/EOMI Neck: Full Range of Motion, Normal Inspection, Non Tender, Supple Respiratory: Lungs Clear, Normal Breath Sounds, No Respiratory Distress Cardiovascular: Regular Rate, Rhythm, No Edema Gastrointestinal: Normal Bowel Sounds, No Organomegaly, No Pulsatile Mass, Soft, Tenderness (Generalized) Back: Normal Inspection, No CVA Tenderness, No Vertebral Tenderness Extremity: Normal Capillary Refill, Normal Inspection, Normal Range of Motion, Non Tender, No Calf Tenderness, No Pedal Edema Neurologic/Psychiatric: Alert, Oriented x3, No Motor/Sensory Deficits, 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 Assessment/Plan Admission Diagnosis Assessment: Abdominal pain from viral gastroenteritis Dehydration Plan: Supportive care Discharge home Advance diet Call me on Thursday Admission Status: Observation Diagnosis/Problems Diagnosis/Problems (1) Abdominal pain Status: Acute NANCY FERRARI DO Feb 09, 2021 11:33
[2021-02-09 12:00] VITALS: BP 116/56
--- NOTE | 2021-02-13 08:53 | Physician Query-Final Dx ---
BRITTANY BENAVIDEZ 02/13/21 0853: Final Diagnosis Give Final Diagnosis Please give Final Diagnosis ALE BURROWS DO 02/13/21 1320: Final Diagnosis Give Final Diagnosis acute enteritis BRITTANY BENAVIDEZ Feb 13, 2021 08:53 ALE BURROWS DO Feb 13, 2021 13:20
== END 2021-02-09 11:31 | disposition home or self-care (01) ==
LOC: 4TH 14:45 → UNDOADMOB 14:45 → 4TH 14:53 → UNDODISOB 02-09 12:43
PROVIDERS: ADMIT Internal Medicine; ATTEND Internal Medicine
DX: K52.9 Noninfective gastroenteritis and colitis, unspecified (principal); A08.4 Viral intestinal infection, unspecified; E86.0 Dehydration; Z79.899 Other long term (current) drug therapy; Z82.49 Family history of ischemic heart disease and other diseases of the circulatory system
CPT/HCPCS: 71046; 74019; 80053 ×2; 80306; 81000; 82150; 83605; 83690; 84145; 85025 ×2; 85652; 86141; G0378; G0379; 36415

== ENCOUNTER 2021-03-14 05:29 | Outpatient (RCR) | payer BC ==
[~2021-03-14] VITALS: Ht 193 cm; Wt 63.5 kg
[~2021-03-14 05:29] MED LIST changes: +DICL50TA6 PO; +DIPH50LI PO; +PANT40TA2 PO; +TRAM50TA3 PO
== END 2021-03-14 09:01 | disposition home or self-care (01) ==
LOC: PREOP 05:29
PROVIDERS: ATTEND Surgery
DX: Z01.812 Encounter for preprocedural laboratory examination (principal); K21.9 Gastro-esophageal reflux disease without esophagitis; Z20.822 Contact with and (suspected) exposure to COVID-19
CPT/HCPCS: 87636

== ENCOUNTER 2021-03-15 12:55 | Day surgery (SDC) | payer BC ==
[~2021-03-15] VITALS: Ht 193 cm; Wt 63.5 kg
[2021-03-15 13:15] VITALS: BP 107/84
--- NOTE | 2021-03-15 13:22 | Progress Note-Pre Operative ---
Pre-Operative Progress Note H&P Reviewed The H&P was reviewed, patient examined and no changes noted. Time Seen by Provider: 11:20 Date H&P Reviewed: Mar 15, 2021 Time H&P Reviewed: 11:20 Pre-Operative Diagnosis: Weight loss, GERD, intractable nausea NICHOLE SOTO DO Mar 15, 2021 13:22
[2021-03-15] MEDS ORDERED: LACTATED RINGERS 1,000 ML IV STA (14:29)
[2021-03-15] MEDS ORDERED: HURRICAINE EXT TUBE (BENZOCAINE) XX PRN (14:30)
[2021-03-15] MEDS ORDERED: MIDAZOLAM 2 MG/2 ML (VERSED) VIAL ONE (14:52)
[2021-03-15] MEDS ORDERED: proPOfol 200 MG/20 ML (DIPRIVAN) VIAL IV ONE (14:52)
[2021-03-15 15:35] VITALS: BP 102/59
--- NOTE | 2021-03-15 15:35 | Anesthesia-General Post-Op ---
MAC Patient Condition Mental Status/LOC: Same as Preop Cardiovascular: Satisfactory Nausea/Vomiting: Absent Respiratory: Satisfactory Pain: Controlled Complications: Absent Post Op Complications Complications None Follow Up Care/Instructions Patient Instructions None needed. Anesthesiology Discharge Order Discharge Order Patient is doing well, no complaints, stable vital signs, no apparent adverse anesthesia problems. No complications reported per nursing. MAX SEQUEIRA CRNA Mar 15, 2021 15:35
[2021-03-15 15:40] VITALS: BP 105/61
[2021-03-15 15:45] VITALS: BP 105/61
--- NOTE | 2021-03-15 16:00 | Progress Note-Post Operative ---
Post-Operative Progess Note Surgeon (s)/Database Analyst (s) Surgeon NICHOLE SOTO DO Database Analyst: none Pre-Operative Diagnosis Weight loss, GERD, intractable nausea Post-Operative Diagnosis Gastritis Hiatal hernia Procedure & Operative Findings Date of Procedure 03/15/21 Procedure Performed/Findings EGD with bx PROCEDURE NOTE: After informed consent was obtained, the patient was brought to the endoscopy suite, placed in bed in left lateral decubitus position. He was administered IV sedation by the DIRECTIONAL SURVEY DRAFTER who then monitored vitals the entire time, heart rate, blood pressure and pulse ox and the scope was inserted down the mouth through the esophagus into the stomach. On the way down, noted some mild esophagitis, took a picture, pushed into the stomach, pushed past the antrum into the duodenum. Duodenum looked good and did a biopsy here. Pulled back and noted some Gastritis; did a biopsy of the antrum. Then retroflexed the scope, saw a 2cm hiatal hernia, took a picture of this and then did a biopsy of the body of the stomach. Next, pulled the scope into the GE junction, took another picture of the hiatal hernia and then did a biopsy of the GE junction. Noted some creeping up of the Z-line. Pushed the scope back into the stomach, suctioned all the air out of the stomach. At this point pulled the scope up the esophagus and out the mouth. I did not see any stricture or narrowing of esophagus. The patient tolerated the procedure, and he recovered in endoscopy suite. Anesthesia Type IV sedation by DIRECTIONAL SURVEY DRAFTER Estimated Blood Loss Estimated blood loss (mL): scant Specimens/Packing Specimens Removed duodenal bx antral bx body of stomach bx GE jxn bx NICHOLE SOTO DO Mar 15, 2021 16:00
--- NOTE | 2021-03-15 16:01 | Endoscopy Discharge Instruct ---
Endo Procedure/Findings Findings 1.: Gastritis 2.: Hiatal Hernia Discharge Instructions - Activity: You might feel a little sleepy until tomorrow. This is due to the medicine you received to relax you. Until tomorrow, you should: NOT drive a car, operate machinery or power tools. NOT drink any alcoholic beverages. NOT make any important decisions or sign importortant papers. Do not return to work until tomorrow, unless otherwise instructed. Resume previous activities tomorrow. Diet: Start by taking liquids. If you tolerate liquids, advance to solid food. 1.: EGD in 1 year Notify Physician - If you experience excessive bleeding, unusual abdominal pain, fever, or chest pain, contact your doctor immediately. NICHOLE SOTO DO Mar 15, 2021 16:01
[2021-03-15 16:15] VITALS: BP 108/60
== END 2021-03-15 16:15 | disposition home or self-care (01) ==
LOC: ENDO 12:55
PROVIDERS: ATTEND Surgery
DX: K29.70 Gastritis, unspecified, without bleeding (principal); K21.00 Gastro-esophageal reflux disease with esophagitis, without bleeding; K44.9 Diaphragmatic hernia without obstruction or gangrene; Z87.891 Personal history of nicotine dependence
CPT/HCPCS: 88305